=== PATIENT | male | born 1950 | race Caucasian/White ===

== ENCOUNTER 2021-07-11 06:20 | Inpatient (IN) | payer MEDICARE ==
[~2021-07-11] VITALS: Ht 175.3 cm; Wt 99.8 kg
[~2021-07-11 06:20] MED LIST: ALBUTEROL0.63 MG/3 INH; BUSPAR 5MG TABLE5 MG PO; DULERA 100 MCG8.8 GM INH; ELIQUIS5 MG PO; ENOXAPARIN100 MG/1 M SQ; GLUCOPHAGE 500500 MG PO; GLUCOTROL 10 MG10 MG PO; HYDRALAZINE HCL10 MG PO; IPRAT-ALBUT 0.5-3 ML INH; JANUVIA50 MG PO; LIPITOR TAB 1010 MG PO; LISINOPRIL20 MG PO; PREDNISONE 20 M20 MG PO; SPIRIVA18 MCG INH; TYLENOL 325MG325 MG PO; ULTRAM50 MG PO; VITAMIN D350000 UNIT PO
[2021-07-11 08:20] LABS: HEMOGLOBIN 16.9 gm/dl (14.0-17.5); RED BLOOD COUNT 5.76 M/UL (4.20-5.50); WHITE BLOOD COUNT 9.7 K/UL (4.5-11.0)
[2021-07-11 08:50] LABS: BUN/CREATININE RATIO 21 (0-10)
[2021-07-11] MEDS ORDERED: SPIRIVA RESPIMAT4 GM INH (13:46)
[2021-07-12 09:02] LABS: HEMOGLOBIN 15.6 gm/dl (14.0-17.5); RED BLOOD COUNT 5.39 M/UL (4.20-5.50); WHITE BLOOD COUNT 13.7 K/UL (4.5-11.0)
[2021-07-12 09:36] LABS: BUN/CREATININE RATIO 28 (0-10)
[2021-07-13 04:41] LABS: HEMOGLOBIN 14.6 gm/dl (14.0-17.5); RED BLOOD COUNT 5.04 M/UL (4.20-5.50)
[2021-07-13 04:42] LABS: WHITE BLOOD COUNT 10.2 K/UL (4.5-11.0)
[2021-07-13 05:46] LABS: BUN/CREATININE RATIO 28 (0-10)
[2021-07-14 05:31] LABS: HEMOGLOBIN 15.5 gm/dl (14.0-17.5); RED BLOOD COUNT 5.32 M/UL (4.20-5.50); WHITE BLOOD COUNT 9.8 K/UL (4.5-11.0)
[2021-07-14 06:19] LABS: BUN/CREATININE RATIO 28 (0-10)
--- NOTE | 2021-07-14 11:09 | NUR ---
PATIENT RETURNED FROM [facility] AT 1100. PLEASE SEE CARDIAC AND INTEGUMENTARY DOCUMENTATION UNDER CARE PLAN. NO ACUTE DISTRESS NOTED, VITALS WNL. WILL MONITOR. BEDREST INSTRUCTIONS GIVEN TO PATIENT, AMBULATION POSSIBLE AT 1319.
[2021-07-14] MEDS ORDERED: ASPIRIN EC81 MG PO (11:37)
[2021-07-14] MEDS ORDERED: ZITHROMAX1 GM PO (11:37)
[2021-07-14] MEDS ORDERED: OMNICEF 300 MG300 MG PO (11:37)
== END 2021-07-14 14:18 | disposition home or self-care (01) | DRG 286 ==
LOC: ER1 06:20 → CDU 13:06 → M/S 13:06
PROVIDERS: Internal Medicine; Physician Assistant; Physician Assistant Medical; ADMIT Internal Medicine
PROC: B24BZZ4 Ultrasonography of Heart with Aorta, Transesophageal (ICD-10-PCS; principal; 2021-07-12)
PROC: 4A023N8 Measurement of Cardiac Sampling and Pressure, Bilateral, Percutaneous Approach (ICD-10-PCS; 2021-07-14)
PROC: B2111ZZ Fluoroscopy of Multiple Coronary Arteries using Low Osmolar Contrast (ICD-10-PCS; 2021-07-14)
PROC: B2181ZZ Fluoroscopy of Left Internal Mammary Bypass Graft using Low Osmolar Contrast (ICD-10-PCS; 2021-07-14)
DX: I11.0 Hypertensive heart disease with heart failure (principal); J96.01 Acute respiratory failure with hypoxia; I50.33 Acute on chronic diastolic (congestive) heart failure; J18.9 Pneumonia, unspecified organism; J44.0 Chronic obstructive pulmonary disease with (acute) lower respiratory infection; I87.2 Venous insufficiency (chronic) (peripheral); I25.5 Ischemic cardiomyopathy; Z20.822 Contact with and (suspected) exposure to COVID-19; I25.10 Atherosclerotic heart disease of native coronary artery without angina pectoris; R59.0 Localized enlarged lymph nodes; F17.210 Nicotine dependence, cigarettes, uncomplicated; I35.0 Nonrheumatic aortic (valve) stenosis; Z90.49 Acquired absence of other specified parts of digestive tract; Z98.890 Other specified postprocedural states; Z82.49 Family history of ischemic heart disease and other diseases of the circulatory system; Z79.899 Other long term (current) drug therapy; Z79.82 Long term (current) use of aspirin
CPT/HCPCS: ECHO; 36415; 36600; 71045; 71250; 80048; 80053; 82550; 82553; 82803; 83735; 83880; 84100; 84484; 85025; 85027; 93005; 93306; 94640; 94664; 94760; 96372; 96374; 96375; 96376; 99152; 99153; 99285; C1751; C1769; G0378; J0456; J0696; J1644; J1650; J1940; J2250; J3010; J7030; J7040; Q9967; U0002

== ENCOUNTER 2021-08-04 02:44 | Emergency (ER) | payer MEDICARE ==
[~2021-08-04 02:44] MED LIST changes: +ASPIRIN EC81 MG PO; +OMNICEF 300 MG300 MG PO; +SPIRIVA RESPIMAT4 GM INH; +ZITHROMAX1 GM PO
== END 2021-08-04 04:12 | disposition home or self-care (01) ==
LOC: ER1 02:44
DX: B35.6 Tinea cruris (principal); I51.9 Heart disease, unspecified; J44.9 Chronic obstructive pulmonary disease, unspecified; F17.210 Nicotine dependence, cigarettes, uncomplicated
CPT/HCPCS: 82962; 99283

== ENCOUNTER 2022-02-03 10:47 | Emergency (ER) | payer MEDICARE ==
[~2022-02-03 10:47] MED LIST changes: +ALDACTONE25 MG PO; +ATORVASTATIN CA20 MG PO; +COMBIVENT RESPIM4 GM INH; +ELIQUIS 5 MG TAB5 MG PO; +LASIX40 MG PO; +NICOTINE PATCH1 EAC2 TOP; +SYMBICORT 16010.2 GM INH
[2022-02-03 11:29] LABS: RED BLOOD COUNT 4.9 M/UL (4.20-5.50); WHITE BLOOD COUNT 10.3 K/UL (4.5-11.0)
[2022-02-03 12:16] LABS: BUN/CREATININE RATIO 22 (0-10)
[2022-02-03] MEDS ORDERED: ASPIRIN EC81 MG PO (15:31)
[2022-02-03] MEDS ORDERED: COMBIVENT RESPIM4 GM INH (15:31)
[2022-02-03] MEDS ORDERED: ELIQUIS5 MG PO (15:31)
[2022-02-03] MEDS ORDERED: ATORVASTATIN CA20 MG PO (15:32)
[2022-02-03] MEDS ORDERED: WIXELA 250-501 EACH INH (15:32)
[2022-02-03] MEDS ORDERED: FUROSEMIDE40 MG PO (15:33)
[2022-02-03] MEDS ORDERED: NICOTINE PATCH1 EAC5 TD (15:33)
[2022-02-03] MEDS ORDERED: SPIRONOLACTONE25 MG PO (15:33)
[2022-02-03] MEDS ORDERED: SPIRIVA RESPIMAT4 GM INH (15:34)
== END 2022-02-03 18:46 | disposition left against medical advice (07) ==
LOC: ER1 10:47 → CDU 14:56 → ER1 18:46
PROVIDERS: Physician Assistant
DX: K42.0 Umbilical hernia with obstruction, without gangrene (principal); J44.0 Chronic obstructive pulmonary disease with (acute) lower respiratory infection; J18.9 Pneumonia, unspecified organism; I11.0 Hypertensive heart disease with heart failure; Z20.822 Contact with and (suspected) exposure to COVID-19; I50.9 Heart failure, unspecified; F17.200 Nicotine dependence, unspecified, uncomplicated; Z86.711 Personal history of pulmonary embolism; Z79.01 Long term (current) use of anticoagulants
CPT/HCPCS: 0240U; 36600; 71045; 80053; 81001; 82550; 82553; 82803; 83605; 83690; 83880; 84484; 85025; 87040; 93005; 94664; 96365; 96366; 96375; 99284; J0456; J0696; J1940; J2405; J7030; Q9967

== ENCOUNTER 2022-02-09 16:43 | Emergency (ER) | payer MEDICARE ==
[~2022-02-09] VITALS: Ht 175.3 cm; Wt 99.8 kg
[~2022-02-09 16:43] MED LIST changes: +FUROSEMIDE40 MG PO; +NICOTINE PATCH1 EAC5 TD; +SPIRONOLACTONE25 MG PO; +WIXELA 250-501 EACH INH
[2022-02-09] MEDS ORDERED: ZITHROMAX250 MG PO (17:04)
[2022-02-09] MEDS ORDERED: MEDROL4 MG PO (17:04)
[2022-02-09 17:24] LABS: HEMOGLOBIN 16.9 gm/dl (14.0-17.5); RED BLOOD COUNT 5.46 M/UL (4.20-5.50); WHITE BLOOD COUNT 11.9 K/UL (4.5-11.0)
[2022-02-09 17:42] LABS: BUN/CREATININE RATIO 29 (0-10)
== END 2022-02-10 00:05 | disposition left against medical advice (07) ==
LOC: ER1 16:43 → CDU 20:21 → ER1 20:21
PROVIDERS: Preventive Medicine Occupational Medicine
DX: K42.0 Umbilical hernia with obstruction, without gangrene (principal); K56.609 Unspecified intestinal obstruction, unspecified as to partial versus complete obstruction; J90 Pleural effusion, not elsewhere classified; I11.0 Hypertensive heart disease with heart failure; I50.20 Unspecified systolic (congestive) heart failure; J44.9 Chronic obstructive pulmonary disease, unspecified; Z86.73 Personal history of transient ischemic attack (TIA), and cerebral infarction without residual deficits; Z90.49 Acquired absence of other specified parts of digestive tract; Z86.718 Personal history of other venous thrombosis and embolism
CPT/HCPCS: 80053; 83690; 85025; 85652; 86140; 93005; 96374; 99283; G0378; J1170; Q9967